=== PATIENT | male | born 1960 | race African-American/Black ===

== ENCOUNTER 2016-06-27 08:29 | Emergency (ER) | payer OTHER ==
--- NOTE | 2016-06-27 09:20 | ED Physician Documentation ---
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 Onset: minutes (20) Where: home Severity: severe Context: direct blow Associated Symptoms:: unable to bear weight Modifying Factors:: pain on movement Further Comments: no - ROS CONST: no problems CVS/RESP: none NEURO: denies: headache, head injury, dizziness GI/: denies: problems urinating, nausea, vomiting MS/SKIN/LYMPH: other (left lateral foot pain) - PAST HX Past History: other (htn, gerd, depression, chronic pain) Immunizations: referred to PCP Allergies/Adverse Reactions: Allergies Allergy/AdvReac Type Severity Reaction Status Date / Time No Known Allergies Allergy Verified 07/25/15 15:09 Home Medications: Ambulatory Orders Medication Instructions Recorded Oxycodone HCl/Acetaminophen 1 each PO TID 10/04/12 [Percocet 10-325 mg Tablet] Ranitidine HCl [Zantac 25] 25 mg PO DAILY 10/04/12 DULoxetine HCL [Cymbalta] 30 mg PO D 01/26/14 - SOCIAL HX Smoking History: cigarettes Alcohol Use: occasionally Drug Use: none - FAMILY HX Family History: no significant history - VITAL SIGNS Vital Signs: Vital Signs Temp Pulse Resp BP Pulse Ox 98.1 F 102 H 20 139/77 98 06/27/16 08:30 06/27/16 08:30 06/27/16 08:30 06/27/16 08:30 06/27/16 08:30 - REVIEWED ASSESSMENTS Nursing Assessment Reviewed: Yes Vitals Reviewed: Yes Progress - Results/Orders Results/Orders: left foot x-ray - Progress Progress: pt. splinted in er. Critical Care Note - Critical Care Note Total Time (mins): 0 ED Results Lab/Radiology - Lab Results Lab Results: none ordered - Radiology Radiology Impressions: x-ray shows fracture distal 5th metatarsal - Orders Orders: ED Orders Category Date Time Status FOOT 3 VIEWS OR MORE [RAD] Stat Exams 06/27/16 Ordered Foot Injury Physical Exam - Physical Exam General Appearance: moderate distress Foot: left foot: soft tissue tenderness (5th metatarsal), swelling (5th metatrsal) Ankle: left: non-tender, normal inspection, normal range of motion, no evidence of injury Gait: limited by pain Neuro: sensation nml, other (motor dercreased by fx) Vascular: no vascular compromise Tendons: other (cannot be evaluated secondary to fracture) Leg/Knee/Thigh: uninjured above ankle Skin: intact, warm Head/ENT: nml inspection, pharynx nml Neck/Back: nml inspection, non-tender Resp/CVS: chest non-tender, breath sounds nml, heart sounds nml, no resp. distress, lungs clear Abdomen: non-tender Discharge Clincal Impression: Fracture of fifth metatarsal bone of left foot Qualifiers: Encounter type: initial encounter Fracture type: closed Fracture alignment: displaced Qualified Code(s): S92.352A - Displaced fracture of fifth metatarsal bone, left foot, initial encounter for closed fracture Referrals: Primary Doctor,No [Primary Care Provider] - 2 Days Home Medications: Ambulatory Orders Oxycodone HCl/Acetaminophen [Percocet 10-325 mg Tablet] 1 each PO TID 10/04/12 Ranitidine HCl [Zantac 25] 25 mg PO DAILY 10/04/12 DULoxetine HCL [Cymbalta] 30 mg PO D 01/26/14 Comments: appointment made for ortho clinic tomorrow. Home with crutches, percocet 7.5/ 500 #10 1 p.o. qid prn pain, walker boot. Condition: Stable Disposition: 01 HOME, SELF-CARE Decision to Admit: NO Decision Time: 09:30
--- NOTE | 2016-06-27 10:37 | Diagnostic Imaging Report ---
MYRTLE MEYER [facility] [address] [facility] [address] 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 There is a transverse fracture through the neck of the 5th metatarsal with minimal displacement. Remainder of foot is intact. Impression: Transverse fracture the 5th metatarsal Electronically signed on Jun 27, 2016 10:03:05 AM DEBONE PROCESSING SUPERVISOR by: Boris ESTRADA
[2016-06-27 10:57] VITALS: BP 154/68
== END 2016-06-27 10:38 | disposition home or self-care (01) ==
LOC: ED 08:29
DX: S92.352A Displaced fracture of fifth metatarsal bone, left foot, initial encounter for closed fracture (principal); W19.XXXA Unspecified fall, initial encounter; Y93.9 Activity, unspecified; Y99.9 Unspecified external cause status
CPT/HCPCS: 73630; L4360; 99283

== ENCOUNTER 2016-09-03 09:09 | Emergency (ER) | payer OTHER ==
--- NOTE | 2016-09-03 09:28 | ED Physician Documentation ---
Abdominal Pain - HISTORIAN Historian: patient - HPI Chief Complaint: Abdominal Pain Onset: hours (6 hours) Duration: constant, persistent Timing: still present Context: denies: out of country travel, bad food Severity: moderate Quality: cramping Associated Symptoms: nausea. 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, had reanatomosis done.) Surgeries/Procedures: other (colostomy placement, with reanastomosis) Home Medications: Ambulatory Orders Medication Instructions Recorded Metformin HCl [Glucophage] PO 09/03/16 Allergies/Adverse Reactions: Allergies Allergy/AdvReac Type Severity Reaction Status Date / Time No Known Allergies Allergy Verified 07/25/15 15:09 - VITAL SIGNS Vital Signs: Vital Signs Temp Pulse Resp BP Pulse Ox 97.8 F 78 20 172/102 94 09/03/16 09:31 09/03/16 09:31 09/03/16 09:31 09/03/16 09:31 09/03/16 09:31 Progress - Progress Progress: 10:35 Pain is improved about 35% 11:02 Pain is almost gone ED Results Lab/Radiology - Lab Results Lab Results: Lab Results 09/03/16 09/03/16 09:50 09:50 WBC 3.70 K/ul L K/ul (4.00-12.00) RBC 4.68 M/ul M/ul (3.90-5.20) Hgb 14.9 g/dL g/dL (12.0-18.0) Hct 44.3 % % (37.0-53.0) MCV 94.6 fl fl (80.0-100.0) MCH 31.8 pg pg (28.0-34.0) MCHC 33.6 g/dL g/dL (30.0-36.0) RDW 14.1 % % (11.3-14.3) Plt Count 183 K/mm3 K/mm3 (130-400) Neut % (Auto) 62.7 % % (39.0-79.0) Lymph % (Auto) 27.6 % % (16.0-50.0) [place] % (Auto) 3.5 % % (0.0-11.0) Eos % (Auto) 3.7 % % (0.0-6.8) Baso % (Auto) 0.6 (0.0-1.5) Neut # 2.3 # k/uL # k/uL (1.4-7.7) Lymph # 1.0 # k/uL # k/uL (0.6-4.0) [place] # 0.1 # k/uL # k/uL (0.0-0.9) Eos # 0.1 # k/uL # k/uL (0.0-0.6) Baso # 0.0 # k/uL # k/uL (0.0-0.5) Reactive Lymphs % 1.8 % % (0.0-5.0) Reactive Lymphs # 0.1 # k/uL # k/uL (0.0-0.8) Sodium 140 mmol/L mmol/L (136-145) Potassium 3.9 mmol/L mmol/L (3.5-5.0) Chloride 108 mmol/L mmol/L (98-110) Carbon Dioxide 33 mmol/L H mmol/L (20-32) BUN 15 mg/dL mg/dL (10-26) Creatinine 0.9 mg/dL mg/dL (0.4-1.5) Estimated Creat Clear 118 Est GFR ( Amer) > 60 (60 - ) Est GFR (Non-Af Amer) > 60 (60 - ) Glucose 107 mg/dL H mg/dL (70-99) Calcium 10.1 mg/dL mg/dL (8.5-10.5) Total Bilirubin 0.4 mg/dL mg/dL (0.2-1.2) AST 31 U/L U/L (0-41) ALT 17 U/L U/L (0-45) Alkaline Phosphatase 82 U/L U/L (46-116) Total Protein 7.7 g/dL g/dL (6.0-8.5) Albumin 4.6 g/dL g/dL (3.0-5.5) Amylase 55 U/L U/L (20-104) - Orders Orders: ED Orders Category Date Time Status ABDOMEN WITH PA CHEST [ABD SERIES PA CHEST] [RAD] Stat Exams 09/03/16 Taken AMYLASE Routine Lab 09/03/16 09:50 Completed CBC/PLATELET/DIFF Routine Lab 09/03/16 09:50 Completed CMP Routine Lab 09/03/16 09:50 Completed Lidocaine 2%Visc 15ml [Xylocaine] Med 09/03/16 09:55 Discontinued 600 mg .ROUTE .STK-MED ONE Mag Hydrox/Al Hydrox/Simeth [Mylanta] Med 09/03/16 09:55 Discontinued 30 ml PO .STK-MED ONE Mag Hydrox/Al Hydrox/Simeth [Mylanta] 30 ml Med 09/03/16 09:46 Discontinued Lidocaine 2%Visc 15ml [Xylocaine] 20 mg PHENobarb/HYOSCY/ATROPINE/SCOP [] 10 ml PO NOW Ondansetron HCl/Pf [Zofran 4 mg/2 ml] Med 09/03/16 09:37 Discontinued 4 mg IVP NOW ONE Abdominal Pain Physical Exam - Physical Exam General Appearance: alert, moderate distress EENT: ENT inspection normal NECK: normal inspection, thyroid normal, supple. No: lymphadenopathy RESPIRATORY: no resp distress, chest non-tender, breath sounds normal. No: wheezes, rales, rhonchi CVS: reg rate & rhythm, heart sounds normal, equal pulses, no murmur ABDOMEN: soft, normal bowel sounds, no distension, tenderness (epigastric area) . No: mass BACK: CVA tenderness (L) (mild) SKIN: warm/dry, normal color EXTREMITIES: non-tender NEURO: mood/affect nml, cognition normal Vital Signs: Vital Signs Temp Pulse Resp BP Pulse Ox 97.8 F 78 20 172/102 94 09/03/16 09:31 09/03/16 09:31 09/03/16 09:31 09/03/16 09:31 09/03/16 09:31 Discharge Clincal Impression: Gastritis Referrals: Primary Doctor,No [Primary Care Provider] - 2 Days Additional Instructions: Take some omeprazole 40gm once a day. Avoid caffeine, alcohol, chocolate and tobacco. Watch for any evidence of bleeding in your gut, vomiting up blood or dark black stools. If you have any further problems to see you primary care provider or return to the ED. Home Medications: Ambulatory Orders Metformin HCl [Glucophage] PO 09/03/16 Condition: Stable Disposition: 01 HOME, SELF-CARE Decision to Admit: NO Date of Decison to Admit: 09/03/16 Decision Time: 10:57
[2016-09-03] MEDS ORDERED: ONDANSETRON HCL/PF 4 MG/ 2ML VIAL IVP ONE (09:37)
[2016-09-03] MEDS ORDERED: MAG HYDROX/AL HYDROX/SIMETH 30 ML, Lidocaine 2%Visc 15ml 20 MG, PHENobarb/HYOSCY/ATROPI... PO ONE ×3 (09:46)
[2016-09-03] MEDS ORDERED: Lidocaine 2%Visc 15ml 20 MG/ML UDC ONE (09:55)
[2016-09-03] MEDS ORDERED: MAG HYDROX/AL HYDROX/SIMETH 30 ML UDC PO ONE (09:55)
[2016-09-03 10:02] LABS: BASOPHILS % 0.6 (0.0-1.5); EOSINOPHILS % 3.7 % (0.0-6.8); MEAN CORPUSCULAR HEMOGLOBIN 31.8 pg (28.0-34.0); MEAN CORPUSCULAR VOLUME 94.6 fl (80.0-100.0); MONOCYTES % 3.5 % (0.0-11.0); NEUTROPHILS # 2.3 # k/uL (1.4-7.7)
[2016-09-03 10:15] LABS: eGFR (African) > 60; eGFR (Non-African) > 60
[2016-09-03 11:19] VITALS: BP 161/85
--- NOTE | 2016-09-03 16:30 | Diagnostic Imaging Report ---
[facility] [address] [facility].[address] [address] Report Submission Date: September 03, 2016 10:30:05 AM CDT Patient Study Name: BETTY MONROY Date: September 03, 2016 9:45:22 AM CDT Modality Type: CR Gender: M Description: CHEST,ABDOMEN : 62 Institution: [facility] Physician [place] [facility] - ER EXAMINATION: Abdominal obstructive series with PA chest. HISTORY: Epigastric pain and constipation FINDINGS: The heart size is normal. The lungs are free of acute infiltrate. There is no pleural effusion or pneumothorax identified. Calcified granuloma seen within the right upper lobe. The bowel gas pattern is normal. There is no evidence of bowel obstruction. Phleboliths are seen in the pelvis. The osseous structures are unremarkable. IMPRESSION: 1. No acute pulmonary disease. 2. Normal bowel gas pattern. Electronically signed on September 03, 2016 10:30:05 AM CDT by: Emerson ETSRADA
== END 2016-09-03 11:18 | disposition home or self-care (01) ==
LOC: ED 09:09
DX: K52.9 Noninfective gastroenteritis and colitis, unspecified (principal)
CPT/HCPCS: 74022; 80053; 82150; 85025; A9270; J2405; 96374; 99283; S1016

== ENCOUNTER 2016-12-11 18:18 | Emergency (ER) | payer OTHER ==
[2016-12-11 18:37] LABS: APPEARANCE,URINE Clear (CLEAR); COLOR,URINE Yellow (YELLOW); OCCULT BLOOD,URINE 1+ (NEGATIVE)
[2016-12-11 18:53] LABS: AMORPHOUS SEDIMENT,UR FEW (NEGATIVE)
[2016-12-11 19:38] LABS: BASOPHILS % 0.8 (0.0-1.5); EOSINOPHILS % 4.4 % (0.0-6.8); MEAN CORPUSCULAR HEMOGLOBIN 31.7 pg (28.0-34.0); MEAN CORPUSCULAR VOLUME 94.4 fl (80.0-100.0); MONOCYTES % 4.1 % (0.0-11.0); NEUTROPHILS # 2.4 # k/uL (1.4-7.7)
[2016-12-11 19:43] LABS: eGFR (African) > 60; eGFR (Non-African) > 60
[2016-12-11 20:18] VITALS: BP 149/78
--- NOTE | 2016-12-11 21:09 | ED Physician Documentation ---
Male Genitourinary Problems - HISTORIAN Historian: patient - HPI Stated Complaint: strong urine Chief Complaint: Male Genitourinary Problems Onset: days ago (7) Duration: continues in ED Severity: moderate Further Comments: yes (56 year old male patient presents with complaint of "strong urine odor for the past week". Patient also complaints of eye redness and matting in the morning for the past 2 days.) - Associated Symptoms Problems Urinating: frequent urination. denies: blood in urine, discomfort w/ urination, burning w/ urination, urgency w/ urination, pain w/ urination Penile Discharge Descripiton: other (none) Testicular Pain: none Testicular Swelling: none Penile Pain: No Flank Pain: none Abdominal Pain: none - Sexual History Sexual History: other (Significant other with trichomoniasis last week) - ROS CONST: none GI/: denies: nausea, vomiting, abdominal pain, problems urinating MS/SKIN/LYMPH: none CVS/RESP: none EYES/ENT: other (eye redness and drainage) - PAST HX Past History: hypertension, other (GERD) Cardiac Disease: other (HTN) Allergies/Adverse Reactions: Allergies Allergy/AdvReac Type Severity Reaction Status Date / Time No Known Allergies Allergy Verified 12/11/16 20:04 Home Medications: Ambulatory Orders Medication Instructions Recorded Valsartan/Hydrochlorothiazide 1 tab PO DAILY 12/11/16 [Diovan Hct 160-25 mg Tablet] - SOCIAL HX Smoking History: cigarettes Alcohol Use: other (daily vodka) - FAMILY HX Family History: denies: none - VITAL SIGNS Vital Signs: Vital Signs Temp Pulse Resp BP Pulse Ox 98.2 F 84 16 149/78 98 12/11/16 20:17 12/11/16 20:17 12/11/16 20:17 12/11/16 20:17 12/11/16 20:17 - REVIEWED ASSESSMENTS Nursing Assessment Reviewed: Yes Vitals Reviewed: Yes Progress - Progress Progress: 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 Denies any history of hematuria. Reviewed lab results with patient, will treat for cystitis. Strongly encouraged patient to follow up with PCP for re-evaluation of hematuria after completing his antibiotic. Reviewed risks of asymptomatic hematuria including cystitis and bladder cancer. Patient verbalized understanding. ED Results Lab/Radiology - Lab Results Lab Results: Lab Results 12/11/16 12/11/16 12/11/16 19:15 19:15 18:30 WBC 4.70 K/ul K/ul (4.00-12.00) RBC 4.64 M/ul M/ul (3.90-5.20) Hgb 14.7 g/dL g/dL (12.0-18.0) Hct 43.8 % % (37.0-53.0) MCV 94.4 fl fl (80.0-100.0) MCH 31.7 pg pg (28.0-34.0) MCHC 33.6 g/dL g/dL (30.0-36.0) RDW 14.3 % % (11.3-14.3) Plt Count 196 K/mm3 K/mm3 (130-400) Neut % (Auto) 50.4 % % (39.0-79.0) Lymph % (Auto) 39.2 % % (16.0-50.0) [place] % (Auto) 4.1 % % (0.0-11.0) Eos % (Auto) 4.4 % % (0.0-6.8) Baso % (Auto) 0.8 (0.0-1.5) Neut # (Auto) 2.4 # k/uL # k/uL (1.4-7.7) Lymph # (Auto) 1.8 # k/uL # k/uL (0.6-4.0) [place] # (Auto) 0.2 # k/uL # k/uL (0.0-0.9) Eos # (Auto) 0.2 # k/uL # k/uL (0.0-0.6) Baso # (Auto) 0.0 # k/uL # k/uL (0.0-0.5) Reactive Lymphs % 1.2 % % (0.0-5.0) Reactive Lymphs # 0.0 # k/uL # k/uL (0.0-0.8) Sodium 140 mmol/L mmol/L (136-145) Potassium 4.3 mmol/L mmol/L (3.5-5.0) Chloride 105 mmol/L mmol/L (98-110) Carbon Dioxide 30 mmol/L mmol/L (20-32) BUN 25 mg/dL mg/dL (10-26) Creatinine 1.3 mg/dL mg/dL (0.4-1.5) Est GFR ( Amer) > 60 (60 - ) Est GFR (Non-Af Amer) > 60 (60 - ) Glucose 110 mg/dL H mg/dL (70-99) Calcium 9.4 mg/dL mg/dL (8.5-10.5) Total Bilirubin 0.4 mg/dL mg/dL (0.2-1.2) AST 23 U/L U/L (0-41) ALT 19 U/L U/L (0-45) Alkaline Phosphatase 81 U/L U/L (46-116) Total Protein 7.7 g/dL g/dL (6.0-8.5) Albumin 4.4 g/dL g/dL (3.0-5.5) Urine Color Yellow (YELLOW) Urine Appearance Clear (CLEAR) Urine pH 7.0 (5.0 - 8.0) Ur Specific [place] 1.020 (1.010-1.030) Urine Protein 2+ mg/dL H mg/dL (NEGATIVE) Urine Ketones Negative mg/dL mg/dL (NEGATIVE) Urine Occult Blood 1+ H (NEGATIVE) Urine Nitrite Negative (NEGATIVE) Urine Bilirubin Negative (NEGATIVE) Urine Urobilinogen 1.0 Eu Eu (0.2-1.0) Ur Leukocyte Esterase Negative (NEGATIVE) Urine RBC 2-5 H (0-2 HPF) Urine WBC 0-2 (0-5 HPF) Ur Squamous Epith Cells Few (NEG-FEW) Amorphous Sediment Few H (NEGATIVE) Urine Glucose Negative mg/dL mg/dL (NEGATIVE) - Orders Orders: ED Orders Category Date Time Status CBC/PLATELET/DIFF Stat Lab 12/11/16 19:15 Completed CMP Stat Lab 12/11/16 19:15 Completed UA W/MICRO IF INDICATED Stat Lab 12/11/16 18:30 Completed Male Genitourinary Problems - EXAM General Appearance: mild distress Abdomen: non-tender, no organomegaly EENT: pharynx normal, no signs of dehydration, SENA, no nystagmus, TM's nml, other (bilateral eyes with erythema and jaundice) Respiratory: no resp distress, chest non-tender, breath sounds normal CVS: reg rate & rhythm, heart sounds normal, equal pulses, no murmur, no gallop , PMI nml, no JVD, no friction rub, 24 Back: non-tender, painless ROM Extremities: normal range of motion, non-tender, normal inspection, no pedal edema, no calf tenderness, normal capillary refill, pelvis stable Neuro/Psych: oriented X3, CN's nml as tested, motor nml, sensation nml, mood/ affect nml Skin: normal color, warm/dry, NR, INT, PAL, DR Discharge Clincal Impression: Cystitis Conjunctivitis Qualifiers: Conjunctivitis type: acute Acute conjunctivitis type: bacterial Laterality: bilateral Qualified Code(s): H10.33 - Unspecified acute conjunctivitis, bilateral Referrals: Primary Doctor,No [Primary Care Provider] - 2 Days Additional Instructions: 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 Avoid caffeinated beverages Tylenol every 4 hours as needed for pain/fever or ibuprofen every 6 hours as needed for pain and fever See your primary care provider for a repeat UA 48 hours after completing your antibiotic. Be sure you follow up with your primary care doctor for RE-EVALUATION of your hematuria Home Medications: Ambulatory Orders Valsartan/Hydrochlorothiazide [Diovan Hct 160-25 mg Tablet] 1 tab PO DAILY 12/11 Condition: Stable Disposition: 01 HOME, SELF-CARE Decision to Admit: NO Decision Time: 20:10
== END 2016-12-11 20:16 | disposition home or self-care (01) ==
LOC: EDBD 18:18 → ED 18:18
DX: N30.90 Cystitis, unspecified without hematuria (principal); H10.33 Unspecified acute conjunctivitis, bilateral
CPT/HCPCS: 80053; 81002; 85025; 99283; S1016

== ENCOUNTER 2017-01-10 14:11 | Emergency (ER) | payer OTHER ==
--- NOTE | 2017-01-10 15:11 | Diagnostic Imaging Report ---
MYRTLE MEYER [facility] [address] [facility] [address] Report Submission Date: Jan 10, 2017 3:00:59 PM CDT Patient Study Name: BETTY MONROY Date: Jan 10, 2017 2:34:07 PM CDT Modality Type: CR Gender: M Description: SHOULDER : 62 Institution: [facility] Physician: MYRTLE MEYER Examination: Plain film shoulder History: Comparison exams: None provided Findings: 3 views of the shoulder demonstrate normal cortical margins. Possible small avulsion involving the acromion No evidence for other fracture or dislocation. No soft tissue abnormality. Impression: Possible small acromial avulsion. No evidence for humeral fracture or dislocation. Electronically signed on Jan 10, 2017 3:00:59 PM CDT by: Alok ESTRADA
[2017-01-10 15:30] VITALS: BP 149/82
--- NOTE | 2017-01-11 04:01 | ED Physician Documentation ---
Fall - HISTORIAN Historian: patient - HPI Stated Complaint: Right shoulder pain Chief Complaint: Fall Additional Information: fell down 4 concrete steps Onset: just prior to arrival Where: home Context: slipped r: moderate Associated Symptoms:: no loss of consciousness Location of Pain/Injury: R shoulder Injury to Right Extremity: shoulder Injury to Left Extremity: none Further Comments: no - ROS CONST: no problems NEURO: denies: dizziness, anxiety, depression MS/SKIN/LYMPH: other (right shoulder pain) EYES/ENT: none CVS/RESP: none GI/: denies: problems urinating, nausea, vomiting - PAST HX Past History: diabetes Type 2, other (gerd, htn) Immunizations: referred to PCP Allergies/Adverse Reactions: Allergies Allergy/AdvReac Type Severity Reaction Status Date / Time No Known Allergies Allergy Verified 01/10/17 14:19 Home Medications: Ambulatory Orders Medication Instructions Recorded Metformin HCl [Glucophage] 1,000 mg PO BID 09/03/16 oxyCODONE HCL/ACETAMINOPHEN 1 tab PO Q4H PRN 01/10/17 [Percocet 5/325] - SOCIAL HX Smoking History: cigarettes Alcohol Use: occasionally Drug Use: none - FAMILY HX Family History: no significant history - VITAL SIGNS Vital Signs: Vital Signs Temp Pulse Resp BP Pulse Ox 98.7 F 79 16 149/82 97 01/10/17 15:29 01/10/17 15:29 01/10/17 15:29 01/10/17 15:29 01/10/17 15:29 - REVIEWED ASSESSMENTS Nursing Assessment Reviewed: Yes Vitals Reviewed: Yes Progress - Results/Orders Results/Orders: left shoulder x-ray ordered - Progress Progress: pt. placed in shoulder immobilizer in er Critical Care Note - Critical Care Note Total Time (mins): 0 ED Results Lab/Radiology - Lab Results Lab Results: none taken - Radiology Radiology Impressions: x-ray right shoulder positive for avulsion fx acromial process - Orders Orders: ED Orders Category Date Time Status Shoulder Immobilizer 1T Care 01/10/17 15:17 Active SHOULDER 2 VIEWS OR MORE [RAD] Stat Exams 01/10/17 Completed Fall Physical Exam - Physical Exam General Appearance: alert, moderate distress Head: non-tender, no swelling, no obvious injury. No: raccoon eyes, Berman's sign Neck: non-tender, painless ROM, trachea midline Eye: SENA, EOMI, lids & conjunct. nml ENT: nml external inspection, no dental injury, no oral injury, airway nml Resp/CVS: chest non-tender, no ecchymosis, breath sounds nml, no resp. distress , heart sounds nml, other (tenderness, no deformity superior right a-c joint) Abdomen: soft, no organomegaly, normal bowel sounds, no abdominal bruit, no distension, non-tender Neuro: oriented x3, CN's nml as tested, sensation nml, motor nml Skin: color nml Back: normal inspection, no CVA tenderness, no vertebral tenderness Extremities: pelvis stable, hips non-tender, bony point-tenderness (right a-c joint) Joint: joints nml, nml ROM, Nml gait/weight bearing - Gloria Coma Score Eyes Open: Spontaneous Speech: Oriented Motor: Obeys Commands Discharge Clincal Impression: Avulsion fracture Referrals: Primary Doctor,No [Primary Care Provider] - 2 Days Comments: discharged in stable condition with shoulder immobilizer and told to use hydrocodone he has at home on a prn basis. Should also use otc nsaids prn. Condition: Stable Disposition: 01 HOME, SELF-CARE Decision to Admit: NO Decision Time: 15:25
== END 2017-01-10 15:29 | disposition home or self-care (01) ==
LOC: ED 14:11
DX: S42.121A Displaced fracture of acromial process, right shoulder, initial encounter for closed fracture (principal); X58.XXXA Exposure to other specified factors, initial encounter; Y93.9 Activity, unspecified; Y99.9 Unspecified external cause status
CPT/HCPCS: 73030; 99283